=== PATIENT | female | born 1950 | race Two or more races ===

== ENCOUNTER 2018-04-17 15:19 | Emergency (ER) | payer MEDICARE ==
[2018-04-17] MEDS ORDERED: ACETAMINOPHEN 325 MG TABLET PO ONE (16:27)
--- NOTE | 2018-04-17 16:28 | ER Document Report ---
HPI - HPI Time Seen by Provider: 04/17/18 16:15 Pain Level: 4 Context: Patient is a 67-year-old female who presents the emergency department with a chief complaint of a fever, sore throat, and "bone pains." She states she took some ibuprofen last night, but has not taken any today. She does complain of some sinus pain that she has had for the past week. She states that everything in her body hurts. She has a past medical history of hypertension. She has had some associated nausea. Denies any vomiting, diarrhea, or abdominal pain. - CONSTITUTIONAL Constitutional: REPORTS: Fever. DENIES: Chills - EENT EENT: REPORTS: Sore Throat, Ear Pain, Nasal Drainage-Clear, Congestion. DENIES: Nasal Drainage-Purulent - NEURO Neurology: REPORTS: Headache - RESPIRATORY Respiratory: DENIES: Trouble Breathing, Coughing - GASTROINTESTINAL Gastrointestinal: DENIES: Abdominal Pain - DERM Skin Color: Normal Skin Problems: None Past Medical History - Social History Smoking Status: Unknown if Ever Smoked Frequency of alcohol use: None Drug Abuse: None Family History: Reviewed & Not Pertinent Vertical Provider Document - CONSTITUTIONAL Agree With Documented VS: Yes Exam Limitations: No Limitations General Appearance: No Apparent Distress - INFECTION CONTROL TRAVEL OUTSIDE OF THE [place] IN LAST 30 DAYS: No - HEENT HEENT: Atraumatic, Normocephalic - NECK Neck: Normal Inspection - RESPIRATORY Respiratory: Breath Sounds Normal, No Respiratory Distress - CARDIOVASCULAR Cardiovascular: Regular Rhythm Pulses: Normal: Radial - GI/ABDOMEN Gastrointestinal: Abdomen Soft - MUSCULOSKELETAL/EXTREMETIES Musculoskeletal/Extremeties: FROM - NEURO Level of Consciousness: Awake, Alert, Appropriate Motor/Sensory: No Motor Deficit, No Sensory Deficit - DERM Integumentary: Warm, Dry Course - Re-evaluation Re-evalutation: 04/17/18 16:33 Patient is requesting to be tested for influenza. Her symptoms are consistent with a sinus infection. I suspect that her sinuses are draining but she continues to have pain in both her maxillary and frontal sinuses bilaterally. She will be treated with amoxicillin for her sinus infection. 04/17/18 17:47 The patient's rapid strep and flu tests are negative. As stated above, she will be treated with amoxicillin for sinus infection. She states she feels better after receiving Tylenol from earlier. I do not suspect pneumonia, acute otitis media, otitis externa, or any life-threatening etiology at this time. Verbal discharge instructions were given to the patient. They verbalized understanding. They are stable for discharge. - Vital Signs Vital signs: Temp Pulse Resp BP Pulse Ox 100.1 F 96 20 135/75 H 96 04/17/18 15:39 04/17/18 15:39 04/17/18 15:39 04/17/18 15:39 04/17/18 15:39 Discharge - Discharge Clinical Impression: Generalized body aches Sinus infection Qualifiers: Sinusitis location: other Chronicity: acute Recurrence: not specified as recurrent Qualified Code(s): J01.80 - Other acute sinusitis Fever Qualifiers: Fever type: unspecified Qualified Code(s): R50.9 - Fever, unspecified Condition: Stable Disposition: HOME, SELF-CARE Instructions: Sore Throat ([facility]) Additional Instructions: You were seen today in the emergency department for sinus pain, fever, and upper respiratory symptoms. You do not have the flu or strep throat. You do have an upper respiratory viral infection. Viral infections can last 7-10 days. Your symptoms are consistent with a sinus infection also. You have been given antibiotics for your sinus infection. Please take as directed. Please follow- up with your primary care provider in regards to this visit. Please take Tylenol 1000 mg or ibuprofen 600 mg every 6 hours as needed for a fever or pain. If you develop a fever greater than 100.4 F while on ibuprofen and Tylenol, have worsening symptoms, develop shortness of breath, or have any symptoms that are worrisome to you, please return to the emergency department. Prescriptions: Amoxicillin Trihydrate [Amoxil 875 mg Tablet] 1 tab PO Q8 #56 tablet Referrals: MICHAEL ZAVALA MD [Primary Care Provider] - Follow up as needed
[2018-04-17] MEDS ORDERED: ONDANSETRON 4 MG TAB.RAPDIS PO ONE (16:29)
[2018-04-17 17:19] LABS: A TYPE INFLUENZA AG NEGATIVE (NEGATIVE); B INFLUENZA AG NEGATIVE (NEGATIVE)
[2018-04-17 17:56] VITALS: BP 111/55
== END 2018-04-17 17:56 | disposition home or self-care (01) ==
LOC: ER 15:19
DX: J01.80 Other acute sinusitis (principal); M79.10 Myalgia, unspecified site; R50.9 Fever, unspecified; R09.81 Nasal congestion; J02.9 Acute pharyngitis, unspecified; R51 Headache; R11.0 Nausea; R09.89 Other specified symptoms and signs involving the circulatory and respiratory systems; I10 Essential (primary) hypertension
CPT/HCPCS: 99283; 87070; 87880; 87077; 87804; A9270 ×2; S0119

== ENCOUNTER → 2019-03-05 | Outpatient (CLI) | payer MEDICARE ==
--- NOTE | 2019-03-08 11:43 | WOMENS IMAGING REPORT ---
EXAM DESCRIPTION: 3D SCREENING MAMMO BILAT COMPLETED DATE/TIME: 03/05/2019 1:33 pm REASON FOR STUDY: ROUTINE SCREENING MAMMOGRAM Z12.31 Z12.31 ENCNTR SCREEN MAMMOGRAM FOR MALIGNANT N EOPLASM OF SANDY COMPARISON: No previous, new baseline study EXAM PARAMETERS: Views: Standard craniocaudal and mediolateral oblique views of each breast recorded using digital acquisition and breast tomosynthesis. Read with the assistance of CAD. .[facility] - [employer] Version 9.2 LIMITATIONS: None. FINDINGS: No suspicious masses, suspicious calcifications or architectural distortion. No areas of c oncern. IMPRESSION: NEGATIVE MAMMOGRAM. BIRADS 1. BREAST DENSITY: c. The breasts are heterogeneously dense, which may obscure small masses. BIRAD: ASSESSMENT: 1 NEGATIVE RECOMMENDATION: ROUTINE SCREENING Please continue yearly bilateral screening mammography/tomosynthesis in February 2020 COMMENT: The patient has been notified of the results by letter per MQSA requirements. Additional no tification policies are in place for contacting patient with suspicious or incomplete findings. Quality ID #[id number]: The [employer] recommends an annual screening mammogram for women aged 40 years or over. This facility utilizes a reminder system to ensure that all patients receive reminder letters, and/or direct phone calls for appointments. This includes reminders for routine scr eening mammograms, diagnostic mammograms, or other Breast Imaging Interventions when appropriate. Th is patient will be placed in the appropriate reminder system. TECHNICAL DOCUMENTATION: FINDING NUMBER: (1) ASSESSMENT: (1) JOB ID: [id number] [employer]- All Rights Reserved Reading location - IP/workstation name: [email or web address]
== END ==
LOC: WI 12:34
PROVIDERS: ATTEND Physician Assistant
DX: Z12.31 Encounter for screening mammogram for malignant neoplasm of breast (principal)
CPT/HCPCS: 77063; 77067